=== PATIENT | female | born 1985 | race Caucasian/White ===

== ENCOUNTER 2018-12-22 09:24 | Emergency (ER) | payer MEDICAID ==
[2018-12-22] MEDS: ALBUTEROL 0.083% (NEB) 2.5 MG/3 ML AMP NEB (09:50)
== END 2018-12-22 10:49 | disposition home or self-care (01) ==
LOC: FTE 09:24
DX: J40 Bronchitis, not specified as acute or chronic (principal)
CPT/HCPCS: 94664; 99283-25

== ENCOUNTER 2018-12-28 17:47 | Emergency (ER) | payer MEDICAID ==
[2018-12-28] MEDS: PROMETHAZINE/CODEINE 5ML CUP PO (18:30)
[2018-12-28] MEDS: IPRATROPIUM (NEB) 0.5 MG/2.5 ML AMP HHN (18:31)
[2018-12-28] MEDS: ALBUTEROL 0.083% (NEB) 2.5 MG/3 ML AMP HHN (18:32)
[2018-12-28] MEDS: GUAIFENESIN LA 600 MG TABSR PO (18:36)
[2018-12-28] MEDS: BENZONATATE 100 MG CAP PO (18:36)
== END 2018-12-28 19:45 | disposition home or self-care (01) ==
LOC: FTE 17:47
DX: J40 Bronchitis, not specified as acute or chronic (principal)
CPT/HCPCS: 94664; 99284-25